=== PATIENT | female | born 1985 | race Caucasian/White ===

== ENCOUNTER → 2024-11-27 08:35 | Outpatient (REF) | payer OTHER, SELFPAY | LOC: WDC 08:35 | PROVIDERS: ATTENDING PHYSICIAN Physician Assistant Medical | DX: Z12.31 Encounter for screening mammogram for malignant neoplasm of breast (principal) | CPT/HCPCS: 77063; 77067 ==

== ENCOUNTER 2025-07-18 06:18 | Day surgery (SDC) | payer OTHER, SELFPAY | END 2025-07-18 10:16 | disposition home or self-care (01) | LOC: GI 06:18 | PROVIDERS: ATTENDING PHYSICIAN Internal Medicine | DX: K20.0 Eosinophilic esophagitis (principal); K22.2 Esophageal obstruction | CPT/HCPCS: 43239; 88305; 88342 ==